=== PATIENT | male | born 1945 | race Caucasian/White ===

== ENCOUNTER 2017-06-17 08:59 | Inpatient (IN) | payer MEDICARE ==
[2017-06-17] MEDS ORDERED: SODIUM CHLORIDE 0.9% (PF) 10 ML VIAL ONE (09:00)
[2017-06-17] MEDS ORDERED: niCARdipine 25 MG/10 ML VIAL ONE (09:00)
[2017-06-17] MEDS ORDERED: ASPIRIN 81 MG PO STA (09:11)
[2017-06-17] MEDS ORDERED: HEPARIN SODIUM,PORCINE 5,000 UNIT/ML 1 ML VIAL IV STA (09:11)
[2017-06-17] MEDS ORDERED: ATORVASTATIN 80 MG TAB PO STA (09:11)
[2017-06-17] MEDS ORDERED: NITROGLYCERIN SL TABS 0.4 MG TAB SUBLINGUAL STA ×2 (09:15)
[2017-06-17] MEDS ORDERED: NALOXONE 0.4 MG/ML 1 ML VIAL IV PRN (09:18)
[2017-06-17] MEDS ORDERED: HYDROmorphone 2 MG/ML 1 ML SYRINGE IV ONE ×3 (09:31→10:12)
[2017-06-17] MEDS ORDERED: SODIUM CHLORIDE 0.9% 1,000 ML IV ONE (09:32)
--- NOTE | 2017-06-17 09:36 | XR ---
EXAMINATION TYPE: XR chest 1V portable DATE OF EXAM: 06/17/2017 CLINICAL HISTORY: ST elevated myocardial infarction. Chest pain into left arm. TECHNIQUE: Single AP portable frontal upright view of the chest is obtained. COMPARISON: None FINDINGS: There is horizontal left basilar opacity could reflect atelectasis and/or scarring. Right lung is clear. No large pleural effusion or pneumothorax is seen bilaterally. The cardiac silhouette size is within normal limits with atherosclerotic change in the aortic knob. The osseous structures are intact. IMPRESSION: Patchy left basilar atelectasis and/or scarring
[2017-06-17] MEDS ORDERED: diphenhydrAMINE 50 MG/ML 1 ML VIAL ONE (09:39)
[2017-06-17] MEDS ORDERED: methylPREDNISolone SOD SUCCI 125 MG/2 ML VIAL ONE (09:39)
[2017-06-17] MEDS ORDERED: NITROGLYCERIN SL TABS 0.4 MG TAB SUBLINGUAL ONE ×2 (09:41)
[2017-06-17] MEDS ORDERED: LIDOCAINE 2% INJ 20 MG/ML SQ ONE (09:41)
[2017-06-17] MEDS ORDERED: methylPREDNISolone SOD SUCCI 125 MG/2 ML VIAL IV ONE (09:43)
[2017-06-17] MEDS ORDERED: diphenhydrAMINE 50 MG/ML 1 ML VIAL IVP ONE (09:43)
[2017-06-17 09:44] LABS: Partial Thromboplastin Time 26.1 sec (22.0-30.0)
[2017-06-17] MEDS ORDERED: BIVALIRUDIN BOLUS 250 MG/50 ML IV ONE (09:45)
[2017-06-17] MEDS ORDERED: BIVALIRUDIN 250 MG in SODIUM CHLORIDE 0.9% 50 ML IV ONE (09:46)
[2017-06-17] MEDS ORDERED: LIDOCAINE 2% SYG (PF) 100 MG/5 ML IV ONE (09:49)
[2017-06-17] MEDS ORDERED: MEPERIDINE 50 MG/ML SYRINGE ONE (09:49)
[2017-06-17 09:50] LABS: INR 1.2 (<1.2); Prothrombin Time 11.2 sec (9.0-12.0)
[2017-06-17 09:50] LABS: Basophils # (A) 0.1 k/uL (0-0.2); Basophils % (A) 1 %; Eosinophils # (A) 0.1 k/uL (0-0.7); Eosinophils % (A) 2 %; HCT 48.1 % (39.0-53.0); HGB 15.9 gm/dL (13.0-17.5); Lymphocytes # (A) 1.9 k/uL (1.0-4.8); Lymphocytes % (A) 27 %; MCH 29.8 pg (25.0-35.0); MCV 90.3 fL (80.0-100.0); Mean Platelet Volume 7.7; Monocytes # (A) 0.4 k/uL (0-1.0); Monocytes % (A) 6 %; Neutrophils # (A) 4.3 k/uL (1.3-7.7); Neutrophils % (A) 62 %; Platelet Count 194 k/uL (150-450); RBC 5.32 m/uL (4.30-5.90); RDW 12.6 % (11.5-15.5); WBC 6.9 k/uL (3.8-10.6)
[2017-06-17] MEDS ORDERED: MEPERIDINE 50 MG/ML SYRINGE IVP ONE (09:50)
[2017-06-17 10:02] LABS: ALT 29 U/L (21-72); AST 20 U/L (17-59); Albumin 3.5 g/dL (3.5-5.0); Alkaline Phosphatase 72 U/L (38-126); Anion Gap 16 mmol/L; Blood Urea Nitrogen 15 mg/dL (9-20); Calcium 8.4 mg/dL (8.4-10.2); Carbon Dioxide 14 mmol/L (22-30); Chloride 113 mmol/L (98-107); Glucose 125 mg/dL (74-99); Magnesium 1.6 mg/dL (1.6-2.3); Potassium 3.4 mmol/L (3.5-5.1); Sodium 143 mmol/L (137-145); Total Bilirubin 0.8 mg/dL (0.2-1.3); Total Protein 6.3 g/dL (6.3-8.2)
--- NOTE | 2017-06-17 10:09 | ED ---
General Adult HPI - General Chief complaint: Chest Pain Stated complaint: CHEST PAIN Time Seen by Provider: 06/17/17 09:02 Source: patient, RN notes reviewed Mode of arrival: ambulatory Limitations: no limitations - History of Present Illness Initial comments: 71-year-old male presents for evaluation of a left anterior superior chest pain and severe left arm pain. Patient's symptoms began at approximately 8 AM. He was evaluated at approximately 9 AM. Denies nausea, has had some diaphoresis. He is in severe pain at the time my evaluation. 10 out of 10. No central substernal chest pain. No history of diabetes or hypertension. Patient is not currently on any medication. No known history of coronary artery disease. Patient is a nonsmoker. - Related Data Home Medications Medication Instructions Recorded Confirmed Multivitamin [Men's Multi-Vitamin] 1 each PO DAILY 02/06/14 02/06/14 Allergies Allergy/AdvReac Type Severity Reaction Status Date / Time povidone-iodine Allergy Rash/Hives Verified 02/06/14 15:47 [From Betadine] propoxyphene HCl Allergy Nausea & Verified 02/06/14 15:47 [From Darvon] Vomiting soap [From Betadine] Allergy Rash/Hives Verified 02/06/14 15:47 Review of Systems ROS Statement: Those systems with pertinent positive or pertinent negative responses have been documented in the HPI. ROS Other: All systems not noted in ROS Statement are negative. Past Medical History Past Medical History: No Reported History Additional Past Medical History / Comment(s): HAS BEEN TOLD THAT ON AN EKG, HEART "SKIPS BEATS" History of Any Multi-Drug Resistant Organisms: None Reported Past Surgical History: Orthopedic Surgery Additional Past Surgical History / Comment(s): ORIF RIGHT EYE ORBIT (SEVERAL SURGERIES) Past Anesthesia/Blood Transfusion Reactions: No Reported Reaction Past Psychological History: No Psychological Hx Reported Smoking Status: Never smoker - Past Family History Mother Family Medical History: Cancer Brother(s) Family Medical History: Cancer General Exam Limitations: no limitations General appearance: alert, in distress Head exam: Present: atraumatic, normocephalic Eye exam: Present: normal appearance, PERRL ENT exam: Present: normal exam Neck exam: Present: normal inspection. Absent: tenderness, meningismus Respiratory exam: Present: normal lung sounds bilaterally. Absent: respiratory distress, wheezes, chest wall tenderness Cardiovascular Exam: Present: regular rate, normal rhythm. Absent: rubs GI/Abdominal exam: Present: soft. Absent: distended, tenderness Extremities exam: Present: normal inspection, normal capillary refill, other ( Bilateral radial and bilateral pedal pulses are symmetric). Absent: pedal edema Neurological exam: Present: alert, oriented X3, CN II-XII intact. Absent: motor sensory deficit Psychiatric exam: Present: normal affect, normal mood Skin exam: Present: warm, intact, diaphoretic Course Vital Signs 06/17/17 06/17/17 06/17/17 09:04 09:11 09:13 Pulse Rate 88 89 Respiratory 22 16 18 Rate Blood Pressure 188/113 194/129 184/114 O2 Sat by Pulse 100 100 Oximetry EKG Findings - EKG Comments: EKG Findings:: EKG shows sinus rhythm with PVC, ventricular rate 89, IN interval 162, castration 82, QTC 4:30, ST segment elevation in leads V1 and V2 V3 and V4, there is reciprocal depression in lead 2. This is consistent with ST segment elevation [place] Medical Decision Making - Medical Decision Making 71-year-old male presenting with sudden onset left-sided chest pain and left arm pain. EKG reveals STEMI. labor and employment paralegal is activated. Patient is evaluated by cardiology in the emergency department and will be taken urgently to the Scrub Nurse. X-ray and laboratory studies are pending. Patient is given aspirin, Lipitor, heparin, and nitroglycerin in the emergency department. - Lab Data Result diagrams: 06/17/17 09:40 Disposition Clinical Impression: ST elevation myocardial infarction (STEMI) Disposition: ADMITTED IP TO THIS [facility] Condition: Serious Decision to Admit Reason: Admit from EC Decision Date: 06/17/17 Decision Time: 09:07
[2017-06-17] MEDS ORDERED: MAGNESIUM SULFATE-D5W PMX 1 GM in DEXTROSE/WATER 1 100ML.BAG IVPB ONE (10:11)
[2017-06-17] MEDS: POTASSIUM CHLORIDE 10 MEQ in SODIUM CHLORIDE 0.9% 100 ML IVPB SCH ×2 (10:22→11:10)
[2017-06-17] MEDS ORDERED: NITROGLYCERIN 1000MCG/10ML SYRINGE INTRACORON ONE ×2 (10:28→10:42)
[2017-06-17] MEDS ORDERED: METOPROLOL TARTRATE 5 MG/5 ML VIAL IVP ONE ×2 (10:32→10:35)
[2017-06-17] MEDS ORDERED: TICAGRELOR 90 MG TAB ONE (10:49)
[2017-06-17] MEDS ORDERED: TICAGRELOR 90 MG TAB PO ONE (10:50)
[2017-06-17 10:58] LABS: Creatine Kinase MB 2.3 ng/mL (0.0-2.4)
[2017-06-17 11:00] LABS: Troponin I 0.316 ng/mL (0.000-0.034)
[2017-06-17] MEDS ORDERED: IODIXANOL 320 MG/ML 100 ML INTRAARTER ONE (11:00)
[2017-06-17] MEDS ORDERED: IOHEXOL 350 MG/ML (PER ML) 100ML BTL INJ ONE (11:01)
[2017-06-17] MEDS ORDERED: LIDOCAINE URO-JET JELLY 2% 5 ML KIT ONE (11:08)
[2017-06-17] MEDS ORDERED: ATROPINE SULFATE 0.1 MG/ML 10ML SYRINGE IV PRN (11:12)
[2017-06-17] MEDS ORDERED: NITROGLYCERIN SL TABS 0.4 MG TAB SUBLINGUAL PRN (11:12)
[2017-06-17] MEDS ORDERED: ZOLPIDEM 5 MG TAB PO PRN (11:12)
[2017-06-17] MEDS ORDERED: MAG HYDROX/AL HYDROX/SIMETH 30 ML CUP PO PRN (11:12)
[2017-06-17] MEDS ORDERED: RX INFO: IV CONTRAST WAS GIVEN 1 EACH MISC MISCELLANE PRN (11:12)
[2017-06-17 11:52] LABS: Glucose,Whole Blood 118 mg/dL (75-99)
--- NOTE | 2017-06-17 11:52 | CONS ---
CONSULTATION This is a 71-year-old gentleman with a history of hyperlipidemia, recently started on a lipid-lowering agent by his PCP, was doing well until about 8:15 this morning when he developed severe chest pain radiating to the left upper extremity with diaphoresis. He lives in [place]. His drove him to the emergency room, was found to be in a ST elevation DE with anterior ST elevation. Patient was hemodynamically stable. In fact, slightly hypertensive with severe pain. I saw him in the emergency room. I advised prompt cardiac catheterization and intervention. He received aspirin 325 mg, heparin 4000 units and also Lipitor 80 mg daily, and he was transferred to the cardiac chemical laboratory assistant. At the time of my evaluation, patient was having severe pain, was hemodynamically stable. PAST MEDICAL HISTORY: Remarkable for degenerative joint disease and also recent hyperlipidemia for which he was placed on a lipid-lowering agent, details unavailable. ALLERGIES: He is allergic to IODINE and DARVON. REVIEW OF SYSTEMS: Unremarkable other than above-mentioned facts. PHYSICAL EXAMINATION: Blood pressure was 160/80, pulse rate was about 86 per minute. HEENT unremarkable. Fundus was not examined by me. Neck is supple. No JVD. I do not hear a carotid bruit. There is no thyromegaly. Heart exam reveals S1, S2 heard normally. Heart sounds were heard distantly. There was no rub murmur or gallop. Lungs are clear. Abdomen is soft, nontender. Lower extremities reveal palpable pulses. No edema. Central nervous system was normal. EKG revealed sinus mechanism, anterior ST elevation suggestive of a acute anterior ST- elevation DE. IMPRESSION: 1. Acute anterior ST-elevation myocardial infarction. 2. Hyperlipidemia. 3. Degenerative joint disease. RECOMMENDATIONS: I recommended prompt cardiac catheterization and PCI as indicated. Risks, benefits, options and rationale were explained to the patient and . Patient has IODINE allergy. He will be treated with steroids and Benadryl. The patient was taken to the cardiac chemical laboratory assistant after discussion regarding the risks, benefits and options. Both the patient and were in agreement. MMODL / IJN: [id number] /
--- NOTE | 2017-06-17 12:16 | CC ---
CARDIAC CATHETERIZATION REPORT DATE OF SERVICE: 06/17/2017 PROCEDURE: 1. Left heart catheterization and coronary angiography. 2. PTCA and stenting of totally occluded mid LAD performed in the setting of an acute ST-elevation ID with reperfusion accomplished in 57 minutes. 3. PTCA and stenting of the major first diagonal branch. 4. PTCA of a second diagonal branch. MODERATE CONSCIOUS SEDATION TIME: The patient was sedated with a combination of Versed, Benadryl and also Dilaudid. He was monitored closely for 69 minutes. Oxygen saturation was also monitored closely. CLINICAL INFORMATION: Mr. Ethan Joel is a 71-year-old gentleman with history of hyperlipidemia who presented to the emergency room with ST elevation ID. He was promptly taken to the cardiac slab installer. Risks, benefits, options and rationale were explained to the patient and . PROCEDURE NOTE: Under local anesthesia and strict aseptic precautions, a 6-Serbian introducer was placed in the right femoral artery. I started off with a standard left Darling guide catheter and performed intervention of the LAD and diagonal and then performed selective coronary angiography of the right coronary artery and checked LV pressures via a pigtail catheter without LV-gram. Following this, I used a Perclose device to secure hemostasis, but because of continued oozing a FemoStop was applied and he was sent to the ICU in a stable condition. The patient received Angiomax bolus and infusion as per protocol. He received 180 mg of Brilinta and was sent to ICU in a stable condition. Results were discussed with the patient and several family members FINDINGS: LEFT MAIN CORONARY ARTERY: Short patent vessel that immediately bifurcates into LAD and circumflex. LEFT ANTERIOR DESCENDING CORONARY ARTERY: This vessel is totally occluded in the midportion after the origin of 2 diagonal branches. The first diagonal comes off very proximally has a 95% stenosis with thrombus. The second diagonal has multiple areas of narrowing, is smaller in caliber, has haziness and thrombus. The LAD is occluded just after the second diagonal branch and there is not even a stump visible. LEFT POSTERIOR CIRCUMFLEX CORONARY ARTERY: Nondominant vessel gives off a single obtuse marginal then a secondary branch that is diffusely disease and then runs in the AV groove. There is diffuse disease in the secondary branch of the first obtuse marginal branch of nondominant circumflex. RIGHT CORONARY ARTERY: This is technically a dominant vessel. In the proximal one- third, there is narrowing of about 40% to 50%. The caliber then improves. Distally it bifurcates into PDA and PLV, both of which supply a fair amount of myocardium. There is diffuse disease noted in the distal branches and the PLV branch also has diffuse disease distally. PDA is larger. LEFT VENTRICULOGRAM: This was not performed. The left ventricular end-diastolic pressure was 26 mmHg without any gradient across the aortic valve. PCI DETAILS: I used a standard left Darling type guide catheter to cannulate left coronary artery. A BMW wire was used to cross the lesion in the second diagonal branch and wire was kept distally. I then advanced another BMW wire and was able to pass through the total occlusion. The LAD wire was kept distally. I used a 2.5 caliber 12 mm Trek balloon to dilate the LAD. There was improvement in angiographic appearance and flow. Patient immediately had relief of chest pain. I then deployed an 18 mm long 3.0 caliber Xience stent in the mid LAD total occlusion with excellent result. I then addressed the second obtuse marginal with a 2.25 caliber 12 mm balloon. This was a small caliber vessel. Multiple inflations were given at the origin as well as in the proximal portion of the second diagonal branch. I then took out the wire from the second diagonal and then wired the first diagonal, which was a larger vessel. Then, the proximal LAD before the second diagonal and after the first diagonal was also highly diseased and this was addressed with a 15 mm long 3.0 caliber Xience stent at 12 atmospheres. Excellent angiographic result in the LAD was achieved, but there was a lot of thrombus. The second diagonal was addressed with a 2.5 caliber 12 mm Trek balloon for predilatation and 16 mm long 2.5 caliber Promus stent was deployed in the second diagonal. Excellent angiographic result was achieved of the second diagonal also. There was a JOSE FRANCISCO-3 flow noted. Patient received intracoronary nitroglycerin and nicardipine. The mid and distal LAD was of a good distribution. It curved over the apex to supply the inferoapical portion of left ventricle as well. The distal aspect of the LAD had smooth narrowing of up to 30% to 40% noted throughout. The LAD was a large distribution vessel. Excellent angiographic result was achieved. Patient has 2 Xience stents of 15 mm of length proximal and 18 mm distal before and after the second diagonal branch. The first diagonal was stented with a 16 mm long 2.5 caliber Promus stent. All of these were drug-eluting stents. Excellent angiographic result without complication was achieved. Patient was pain free with a JOSE FRANCISCO-3 flow in LAD. The second diagonal had somewhat of a sluggish flow, but the first diagonal had an excellent flow. Results were to the patient and family and he was sent to the ICU in a stable condition. MMODL / IJN: [id number] /
[2017-06-17] MEDS: LOSARTAN 50 MG TAB PO SCH (12:23)
[2017-06-17] MEDS: SODIUM CHLORIDE 0.9% 1,000 ML IV SCH (12:23)
[2017-06-17] MEDS ORDERED: MORPHINE SULFATE 4 MG/ML SYRINGE IVP PRN (13:09)
[2017-06-17] MEDS ORDERED: HYDROcodone/APAP 5-325MG 1 EACH TAB PO PRN (13:09)
[2017-06-17 14:22] VITALS: BMI 26.6
[2017-06-17] MEDS ORDERED: amLODIPine 5 MG TAB PO STA (15:39)
[2017-06-17 15:52] LABS: Magnesium 2.1 mg/dL (1.6-2.3); Potassium 4.6 mmol/L (3.5-5.1)
[2017-06-17] MEDS: METOPROLOL TARTRATE 12.5 MG TAB PO SCH (20:09)
[2017-06-17] MEDS: ATORVASTATIN 80 MG TAB PO SCH (20:09)
[2017-06-18 05:04] LABS: Basophils % (A) 0 %; Eosinophils # (A) 0.1 k/uL (0-0.7); Eosinophils % (A) 0 %; HCT 49.8 % (39.0-53.0); HGB 15.7 gm/dL (13.0-17.5); Lymphocytes # (A) 1.1 k/uL (1.0-4.8); Lymphocytes % (A) 7 %; MCH 29.3 pg (25.0-35.0); MCHC 31.5 g/dL (31.0-37.0); MCV 93.1 fL (80.0-100.0); Mean Platelet Volume 7.6; Monocytes # (A) 0.9 k/uL (0-1.0); Monocytes % (A) 5 %; Neutrophils # (A) 14.7 k/uL (1.3-7.7); Neutrophils % (A) 87 %; Platelet Count 206 k/uL (150-450); RBC 5.35 m/uL (4.30-5.90); RDW 12.7 % (11.5-15.5)
[2017-06-18 05:16] LABS: Anion Gap 9 mmol/L; Blood Urea Nitrogen 20 mg/dL (9-20); Calcium 9.2 mg/dL (8.4-10.2); Carbon Dioxide 24 mmol/L (22-30); Chloride 105 mmol/L (98-107); Glucose 136 mg/dL (74-99); Potassium 4.4 mmol/L (3.5-5.1); Sodium 138 mmol/L (137-145)
[2017-06-18] MEDS: LOSARTAN 50 MG TAB PO SCH (08:22)
[2017-06-18] MEDS: METOPROLOL TARTRATE 12.5 MG TAB PO SCH ×2 (08:22→19:57)
[2017-06-18] MEDS: ASPIRIN 81 MG PO SCH (08:22)
[2017-06-18] MEDS: TICAGRELOR 90 MG TAB PO SCH ×2 (08:22→19:57)
[2017-06-18] MEDS: SODIUM CHLORIDE 0.9% 1,000 ML IV SCH (08:22)
--- NOTE | 2017-06-18 12:44 | PN ---
PROGRESS NOTE Mr. Joel presented with acute anterior ST-elevation [place] yesterday. I performed a cardiac cath and PCI of a complex LAD lesion and also placed a drug-eluting stent in the first major diagonal and dilated the second major diagonal and mid LAD had also 2 stents. Excellent angiographic result was achieved. He presents here. I am seeing him following the procedure. He is asymptomatic. His right groin has ecchymosis. He did have some bleeding after the Perclose was not successful. He had a manual compression. There is an area of ecchymosis with a good pulse. No bruit in the right groin. He does not have any chest discomfort. EKG reveals evidence of anterior Q-waves, a sinus mechanism. Blood pressure is 120/70, pulse rate is 74 per minute, regular. HEENT: Unremarkable. Fundus was not examined by me. Neck is supple. No JVD. I do not hear a carotid bruit. Heart exam reveals S1, S2 heard normally without a rub, murmur or gallop. Lungs are clear. Abdomen is soft, nontender. Right groin has ecchymosis. No bruit. Pulses palpable, distal pulses are good. Central nervous system is normal. EKG revealed a sinus mechanism with evidence of anterior Q-waves. IMPRESSION: 1. Status post acute anterior ST-elevation myocardial infarction. 2. Hyperlipidemia. RECOMMENDATIONS: I am recommending that we increase activity and hopefully transfer him to telemetry today. Continue hydration till 6 pm and then reduce the fluids to KVO. I will also review an echocardiogram that was performed today. Will increase activity, risk factor modification and transfer him to telemetry today. MMODL / IJN: [id number] /
--- NOTE | 2017-06-18 13:39 | ECHOF ---
Referral Reason:Ant STEMI ,S/P LAD PCI MEASUREMENTS -------- HEIGHT: 177.8 cm WEIGHT: 81.6 kg BP: 113/79 IVSd: 0.9 cm (0.6 - 1.1) LVIDd: 5.1 cm (3.9 - 5.3) LVPWd: 0.9 cm (0.6 - 1.1) IVSs: 0.7 cm LVIDs: 4.2 cm LVPWs: 0.6 cm LAESV Index (A-L): 10.05 ml/m Ao Diam: 3.3 cm (2.0 - 3.7) AV Cusp: 1.8 cm (1.5 - 2.6) LA Diam: 3.1 cm (2.7 - 3.8) MV EXCURSION: 19.089 mm (> 18.000) MV EF SLOPE: 214 mm/s (70 - 150) EPSS: 1.9 cm MV E Giancarlo: 0.67 m/s MV DecT: 203 ms MV A Giancarlo: 0.67 m/s MV E/A Ratio: 1.00 RAP: 5.00 mmHg RVSP: 30.03 mmHg FINDINGS -------- Sinus rhythm. This was a technically good study. The left ventricular size is normal. Left ventricular wall thickness is normal. Overall left vent ricular systolic function is severely impaired with, an EF between 20 - 25 %. Mid anterior LV wall motion is hypokinetic. Mid lateral LV wall motion is hypokinetic. Mid inferior LV wall motion i s hypokinetic. Mid inferoseptal LV wall motion is hypokinetic. Mid anteroseptal LV wall motion is hypokinetic. Apical anterior LV wall motion is hypokinetic. Apical lateral LV wall motion is hypokinetic. Apical inferior LV wall motion is hypokinetic. Apical septum LV wall motion is hy pokinetic. Anterseptal Hypokinesis The right ventricle is normal in size and function. The left atrium is normal in size. The right atrium is normal in size. The aortic valve is trileaflet, and appears structurally normal. No aortic stenosis or regurgitation. Moderate mitral regurgitation is present. There is moderate mitral valve prolapse , predominately a n anteriorly directed jet. Mild tricuspid regurgitation present. The right ventricular systolic pressure, as measured by Doppl er, is 30.03mmHg. Pulmonic valve appears structurally normal. The aortic root size is normal. There is a trivial pericardial effusion present. CONCLUSIONS -------- 1. Sinus rhythm. 2. This was a technically good study. 3. The left ventricular size is normal. 4. Left ventricular wall thickness is normal. 5. Overall left ventricular systolic function is severely impaired with, an EF between 20 - 25 %. 6. Mid anterior LV wall motion is hypokinetic. 7. Mid lateral LV wall motion is hypokinetic. 8. Mid inferior LV wall motion is hypokinetic. 9. Mid inferoseptal LV wall motion is hypokinetic. 10. Mid anteroseptal LV wall motion is hypokinetic. 11. Apical anterior LV wall motion is hypokinetic. 12. Apical lateral LV wall motion is hypokinetic. 13. Apical inferior LV wall motion is hypokinetic. 14. Apical septum LV wall motion is hypokinetic. 15. Anterseptal Hypokinesis 16. The right ventricle is normal in size and function. 17. The left atrium is normal in size. 18. The right atrium is normal in size. 19. The aortic valve is trileaflet, and appears structurally normal. No aortic stenosis or regurgitat ion. 20. There is moderate mitral valve prolapse. 21. , predominately an anteriorly directed jet. 22. Mild tricuspid regurgitation present. 23. The right ventricular systolic pressure, as measured by Doppler, is 30.03mmHg. 24. Pulmonic valve appears structurally normal. 25. The aortic root size is normal. 26. There is a trivial pericardial effusion present. ROPE TOW OPERATOR: Ginette Aden RDCS
[2017-06-18] MEDS ORDERED: MORPHINE ORAL SOLN 10 MG/5 ML CUP PO PRN (13:55)
[2017-06-18] MEDS: ATORVASTATIN 80 MG TAB PO SCH (19:57)
[2017-06-19 06:34] LABS: Basophils % (A) 0 %; Eosinophils # (A) 0.1 k/uL (0-0.7); Eosinophils % (A) 1 %; HCT 47.8 % (39.0-53.0); HGB 15.6 gm/dL (13.0-17.5); Lymphocytes # (A) 1.4 k/uL (1.0-4.8); Lymphocytes % (A) 13 %; MCH 29.7 pg (25.0-35.0); MCHC 32.6 g/dL (31.0-37.0); MCV 91.2 fL (80.0-100.0); Mean Platelet Volume 7.7; Monocytes # (A) 0.7 k/uL (0-1.0); Monocytes % (A) 7 %; Neutrophils # (A) 8.3 k/uL (1.3-7.7); Neutrophils % (A) 78 %; Platelet Count 174 k/uL (150-450); RBC 5.24 m/uL (4.30-5.90); RDW 12.8 % (11.5-15.5); WBC 10.6 k/uL (3.8-10.6)
[2017-06-19 06:40] LABS: Potassium 4.2 mmol/L (3.5-5.1)
[2017-06-19] MEDS: METOPROLOL TARTRATE 12.5 MG TAB PO SCH (06:44)
[2017-06-19] MEDS: TICAGRELOR 90 MG TAB PO SCH ×2 (09:02→20:56)
[2017-06-19] MEDS: LOSARTAN 50 MG TAB PO SCH (09:02)
[2017-06-19] MEDS: ASPIRIN 81 MG PO SCH (09:02)
[2017-06-19] MEDS ORDERED: METOPROLOL TARTRATE 12.5 MG TAB PO STA (09:09)
[2017-06-19] MEDS ORDERED: DEXTROSE 5% IN WATER 100 ML with AMIODARONE 150 MG IV ONE (09:09)
[2017-06-19] MEDS: AMIODARONE 450 MG in DEXTROSE 5% IN WATER 250 ML IV SCH ×6 (11:27→23:11)
--- NOTE | 2017-06-19 16:56 | PN ---
PROGRESS NOTE Mr. Joel had an echocardiogram yesterday which revealed ejection fraction of only 25% with extensive wall motion abnormalities. Unfortunately he had runs of wide QRS tachycardia. I am recommending that we place him on IV amiodarone, increase the Lopressor, to repeat an echocardiogram, and based on clinical course, I will make further recommendations and I will seek an opinion from Dr. Beyer. I discussed the findings on the echo, ventricular ectopy and the concern that we have and the possibility he may have a LifeVest prior to discharge with the patient and his family. Blood pressure today is 110/70, pulse rate 70 per minute. JVD is not evident. S1, S2 heard normally. Lungs reveal decent air entry. Abdomen is soft. Lower extremities reveal diminished pulses. Central nervous system is normal grossly. Plan is to continue current medications and add amiodarone and see how he does. His magnesium and potassium are in the normal range. MMODL / IJN: [id number] /
[2017-06-19] MEDS: ATORVASTATIN 80 MG TAB PO SCH (20:56)
[2017-06-19] MEDS: METOPROLOL TARTRATE 25 MG TAB PO SCH (20:56)
[2017-06-20] MEDS: TICAGRELOR 90 MG TAB PO SCH ×2 (08:27→20:34)
[2017-06-20] MEDS: METOPROLOL TARTRATE 25 MG TAB PO SCH ×2 (08:27→20:34)
[2017-06-20] MEDS: ASPIRIN 81 MG PO SCH (08:28)
[2017-06-20] MEDS: LOSARTAN 50 MG TAB PO SCH (08:28)
--- NOTE | 2017-06-20 08:50 | ECHOF ---
Referral Reason:decreased heart function, 2nd echo requested by MEASUREMENTS -------- HEIGHT: 175.3 cm WEIGHT: 81.6 kg BP: 99/72 RVIDd: 2.8 cm (< 3.3) IVSd: 1.0 cm (0.6 - 1.1) LVIDd: 4.5 cm (3.9 - 5.3) LVPWd: 0.9 cm (0.6 - 1.1) IVSs: 1.1 cm LVIDs: 3.6 cm LVPWs: 1.1 cm LAESV Index (A-L): 20.11 ml/m Ao Diam: 3.0 cm (2.0 - 3.7) AV Cusp: 1.6 cm (1.5 - 2.6) LA Diam: 3.5 cm (2.7 - 3.8) MV E Giancarlo: 0.46 m/s MV DecT: 362 ms MV A Giancarlo: 0.83 m/s MV E/A Ratio: 0.56 RAP: 5.00 mmHg RVSP: 28.25 mmHg MV EF SLOPE: 73.75 mm/s (70 - 150) MV EXCURSION: 1.12 cm (> 18.000) FINDINGS -------- Sinus rhythm. Limited Study for assessment of left ventricular function. The left ventricular size is normal. Left ventricular wall thickness is normal. Overall left vent ricular systolic function is severely impaired with, an EF between 20 - 25 %. Mid anterior LV wall motion is hypokinetic. Mid lateral LV wall motion is hypokinetic. Mid inferior LV wall motion i s hypokinetic. Apical anterior LV wall motion is hypokinetic. Apical lateral LV wall motion is hypokinetic. Apical inferior LV wall motion is hypokinetic. Apical septum LV wall motion is hyp okinetic. Anterseptal Hypokinesis [place] Hypokinesis. The right ventricle is normal in size. Normal LA size by volume 22+/-6 ml/m2. The right atrium is normal in size. There is moderate mitral valve prolapse. There is a small, generalized pericardial effusion present. CONCLUSIONS -------- 1. Sinus rhythm. 2. Limited Study for assessment of left ventricular function. 3. The left ventricular size is normal. 4. Left ventricular wall thickness is normal. 5. Overall left ventricular systolic function is severely impaired with, an EF between 20 - 25 %. 6. Mid anterior LV wall motion is hypokinetic. 7. Mid lateral LV wall motion is hypokinetic. 8. Mid inferior LV wall motion is hypokinetic. 9. Apical anterior LV wall motion is hypokinetic. 10. Apical lateral LV wall motion is hypokinetic. 11. Apical inferior LV wall motion is hypokinetic. 12. Apical septum LV wall motion is hypokinetic. 13. Anterseptal Hypokinesis 14. [place] Hypokinesis. 15. Normal LA size by volume 22+/-6 ml/m2. 16. There is moderate mitral valve prolapse. 17. There is a small, generalized pericardial effusion present. INGOT CAR OPERATOR: Konstantin Tejada RDCS
[2017-06-20] MEDS: AMIODARONE 450 MG in DEXTROSE 5% IN WATER 250 ML IV SCH ×2 (12:46)
[2017-06-20] MEDS: AMIODARONE 200 MG TAB PO SCH ×2 (12:46→20:34)
--- NOTE | 2017-06-20 15:18 | PN ---
PROGRESS NOTE This is a gentleman who suffered from an anterior [place], has developed ventricular ectopy until day before yesterday. He is resting comfortably. His functional capacity is good. However, his echo revealed ejection fraction of 20% to 25% with extensive wall motion abnormality. I am recommending that we will do a low-level stress test on Thursday and we will continue the amiodarone and beta ayush for now. Discontinue the IV, put a Hep-Lock. Increase activity and hopefully discharge him with a Life Vest after a low level stress test on Thursday. Vital signs are stable there is no JVD. S1, S2 heard normally. Lungs are quite clear. Abdomen is soft. Lower extremities reveal palpable pulses. No edema. Central nervous system is normal. Rest of physical examination is unchanged. MMODL / IJN: [id number] /
[2017-06-20] MEDS: ATORVASTATIN 80 MG TAB PO SCH (20:34)
--- NOTE | 2017-06-20 22:07 | PN ---
PROGRESS NOTE DATE OF SERVICE: 06/20/2017 I am covering for Dr. Ethan Hensley. This 71-year-old gentleman with acute ST-segment elevation myocardial infarction , had cardiac catheterization and as well as PTCA, stenting of the totally occluded mid LAD and as well as PTCA and stenting of the major 1st diagonal branch, PTCA of 2nd diagonal branch also by Dr. Stewart Mcgraw. 2D echo Doppler showed evidence of chronic systolic dysfunction ejection fraction 20 to 25% with multiple wall hypokinesis indicating possibly ischemic cardiomyopathy. Cardiology is following the patient closely and the patient is on multiple medications. Patient also had right complex QRS tachycardia. The patient is on amiodarone IV, transitioned to p.o. LifeVest is also being planned at this time. PAST MEDICAL: Past medical reviewed. REVIEW OF SYSTEMS: Cardio system: As mentioned earlier. Respiratory: As mentioned earlier. GI no nausea or vomiting. : As mentioned earlier. CURRENT MEDICATIONS ARE: 1. [place] 5 mg q.4h p.r.n. 2. Maalox 30 mL q.4h p.r.n. 3. Cordarone 200 mg p.o. b.i.d. 4. Aspirin 81 mg p.o. daily. 5. Lipitor 80 mg p.o. q.h.s. 6. 0tropine 0.5 p.r.n. 7. Cozaar 50 mg q.h.s. 8. Lopressor 25 mg p.o. b.i.d. 9. Morphine 6 mg q.24 hours. 10.Narcan 0.2 q.2h p.r.n. 11.Nitrostat 0.4 mg. 13.Ambien 5 mg p.o. b.i.d. PHYSICAL EXAM: Patient is alert, oriented times three, pulse 70, blood pressure 103/65, respiratory rate 12, temperature is 97.8, pulse ox 97% room air. HEENT: Conjunctivae normal. Oral mucosa moist. Neck is no jugular venous distention. No carotid bruit. No lymph node enlargement. Cardiac system: S1, S2 muffled. No S3, no S4. RESPIRATORY: Breath sounds diminished in the bases. A few scattered rhonchi. No crackles. ABDOMEN: Soft, nontender. No mass palpable. Legs no edema and no swelling. NERVOUS SYSTEM: Higher functions as mentioned earlier. Moves all four limbs. Lymphatics: No lymph nodes palpable in the neck, axilla and groin. Skin no rashes. LABS: At this time shows WBC 10.6 and glucose 136. Troponins elevated up to 104. The chest x-ray done during admission patchy left basilar atelectasis and scarring. ASSESSMENT: 1. Acute ST-segment elevation myocardial infarction status post cardiac catheterization and stenting of the mid LAD and as well as major 1st and 2nd diagonal branches. 2. Ischemic cardiomyopathy with chronic congestive heart failure with chronic systolic dysfunction ejection fraction 25-30%. 3. Gastroesophageal reflux disease. 4. Hyperlipidemia. 5. History of degenerative joint disease. 6. History of bronchitis. 7. History of degenerative joint disease and arthritis. 8. History of hernia repair. RECOMMENDATIONS AND DISCUSSION: In this 71-year-old gentleman who presented with multiple complex medical issues , we will monitor the patient closely, continue the current medications and management and symptomatic treatment. Otherwise, I would recommend repeat labs. Lipid panel and I would also recommend baseline UA and continue the Amiodarone, continue with beta blockers. Monitor blood pressure closely. Monitor fluid and electrolyte balance closely. Patient is on Brilinta and aspirin as well. Closely monitor. Follow with Cardiology. Possible LifeVest/AICD. The patient is on maximum dose of Lipitor as well. The prognosis is guarded because of multiple complex medical issues. Discussed with the patient and closely follow with Cardiology. Further recommendations to follow. BARRON / DOMI: [id number] / MTDD
[2017-06-20 22:09] LABS: Appearance,Urine Clear (Clear); Bilirubin,Urine Negative (Negative); Blood,Urine Negative (Negative); Color,Urine Yellow; Glucose,Urine (UA) Negative (Negative); Ketones,Urine Negative (Negative); Leukocyte Esterase,Urine Negative (Negative); Nitrite,Urine Negative (Negative); Protein,Urine Negative (Negative); Specific Gravity,Urine 1.013 (1.001-1.035); Urobilinogen,Urine <2.0 mg/dL (<2.0)
[2017-06-21 06:41] LABS: Basophils # (A) 0.1 k/uL (0-0.2); Basophils % (A) 1 %; Eosinophils # (A) 0.2 k/uL (0-0.7); Eosinophils % (A) 2 %; HCT 46.3 % (39.0-53.0); HGB 14.9 gm/dL (13.0-17.5); Lymphocytes # (A) 1.5 k/uL (1.0-4.8); Lymphocytes % (A) 14 %; MCH 29.1 pg (25.0-35.0); MCHC 32.1 g/dL (31.0-37.0); MCV 90.8 fL (80.0-100.0); Monocytes # (A) 0.6 k/uL (0-1.0); Monocytes % (A) 6 %; Neutrophils # (A) 7.9 k/uL (1.3-7.7); Neutrophils % (A) 75 %; Platelet Count 188 k/uL (150-450); RDW 12.5 % (11.5-15.5); WBC 10.5 k/uL (3.8-10.6)
[2017-06-21 06:56] LABS: Anion Gap 10 mmol/L; Blood Urea Nitrogen 17 mg/dL (9-20); Calcium 9.1 mg/dL (8.4-10.2); Carbon Dioxide 24 mmol/L (22-30); Chloride 106 mmol/L (98-107); Cholesterol 105 mg/dL (<200); Glucose 88 mg/dL (74-99); HDL Cholesterol 41 mg/dL (40-60); LDL Cholesterol,Calculated 45 mg/dL (0-99); Magnesium 1.8 mg/dL (1.6-2.3); Potassium 4.5 mmol/L (3.5-5.1); Sodium 140 mmol/L (137-145); Triglycerides 96 mg/dL (<150)
[2017-06-21] MEDS: METOPROLOL TARTRATE 25 MG TAB PO SCH ×2 (09:05→21:35)
[2017-06-21] MEDS: AMIODARONE 200 MG TAB PO SCH ×2 (09:05→21:35)
[2017-06-21] MEDS: ASPIRIN 81 MG PO SCH (09:05)
[2017-06-21] MEDS: TICAGRELOR 90 MG TAB PO SCH ×2 (09:05→21:35)
[2017-06-21] MEDS: LOSARTAN 50 MG TAB PO SCH (10:21)
[2017-06-21] MEDS ORDERED: MAGNESIUM SULFATE-D5W PMX 1 GM in DEXTROSE/WATER 1 100ML.BAG IVPB ONE (12:00)
--- NOTE | 2017-06-21 15:18 | PN ---
PROGRESS NOTE Mr. Joel is in sinus rhythm. Has had no ventricular ectopy at all. His magnesium level is low. We will give him 1 g of magnesium and also start him on Lasix 10 mg b.i.d. p.o. Lungs revealed decent air entry with very fine rales on right base. S1, S2 heard normally. Right groin is clean and dry. Rest of physical examination is unchanged. I will give him Lasix 10 mg b.i.d. a low-level stress test tomorrow and he will be discharged with a Life Vest. MMODL / IJN: [id number] / MTDD
[2017-06-21] MEDS: FUROSEMIDE 10 MG TAB PO SCH (16:20)
--- NOTE | 2017-06-21 19:30 | PN ---
PROGRESS NOTE DATE OF SERVICE: 06/21/2017 I am covering for Dr. Ethan Hensley. HISTORY OF PRESENT ILLNESS: This 71-year-old gentleman who was admitted with acute elevation myocardial infarction is being also closely monitored at this time. The patient is slated for Life Vest placement as well as valvular stress test tomorrow. No chest pain. No palpitations. No fever. EXAM: Alert and oriented x3. Pulse 74, blood pressure 103/62, respiration 14, temperature 97.2, pulse ox 98% on room air. HEENT: Conjunctivae normal. NECK: No jugular venous distention. CARDIOVASCULAR: S1, S2. RESPIRATORY: Breath sounds diminished in the bases. No rhonchi, no crackles. ABDOMEN: Soft, nontender. LEGS: No edema. NERVOUS SYSTEM: No focal deficits. LAB: CBC and BMP within normal limits. Troponin is noted. ASSESSMENT: 1. Acute ST-segment elevation myocardial infarction status post cardiac catheterization, stenting of the mid LAD as well as [place] first and second diagonal branches. 2. Ischemic cardiomyopathy with chronic congestive heart failure with chronic systolic dysfunction, ejection fraction 25-30%. 3. Gastroesophageal reflux disease. 4. Hyperlipidemia. 5. History of degenerative joint disease. 6. History of bronchitis. 7. History of hernia repair. RECOMMENDATIONS AND DISCUSSION: I recommend to continue current management and symptomatic treatment. Closely follow with Cardiology. Antiplatelet and beta blockers and Dr. Hensley will follow. Further recommendations to follow. MMLUCYL / LUISN: [id number] /
[2017-06-21] MEDS: ATORVASTATIN 80 MG TAB PO SCH (21:35)
[2017-06-22 08:55] VITALS: PULSE 68
[2017-06-22] MEDS ORDERED: POTASSIUM CHLORIDE ER 10 MEQ TAB.ER.PRT PO SCH (09:00)
[2017-06-22] MEDS: METOPROLOL TARTRATE 25 MG TAB PO SCH (09:12)
[2017-06-22] MEDS: ASPIRIN 81 MG PO SCH (09:12)
[2017-06-22] MEDS: AMIODARONE 200 MG TAB PO SCH (09:12)
[2017-06-22] MEDS: TICAGRELOR 90 MG TAB PO SCH (09:12)
[2017-06-22] MEDS: FUROSEMIDE 10 MG TAB PO SCH ×2 (09:12→15:13)
[2017-06-22] MEDS: LOSARTAN 50 MG TAB PO SCH (09:19)
--- NOTE | 2017-06-22 12:19 | EST ---
EXERCISE STRESS DATE OF SERVICE: 06/22/2017 AGE: 71 SEX: Male HT: 59" WT: 180 PROTOCOL: Marky, modified. STAGE: I DURATION OF EXERCISE: 3 minutes, 5 seconds. HEART RATE REST: 63 BLOOD PRESSURE REST: 131/60 MAXIMUM HEART RATE ACHIEVED: 74 MAXIMUM BLOOD PRESSURE: 136/60 85% MPHR: 126 100% MPHR: 148 METS: @@ INDICATIONS: Chest pain. CLINICAL INFORMATION: Baseline rhythm is sinus mechanism, rate 63, borderline right axis deviation, evidence of anterior wall myocardial infarction. Baseline blood pressure 131/60 mmHg. Patient exercised on Marky protocol, on modified Marky protocol, for 3 minutes 5 seconds achieving peak rate of 74 beats per minute. Peak blood pressure 136/60 mmHg. Test was terminated secondary to fatigue. There were no chest pains. Electrocardiograph monitoring revealed no evidence of diagnostic ischemic ST deviation. No arrhythmia was noted. CONCLUSION: 1. Poor exercise tolerance. 2. Nondiagnostic electrocardiograph stress testing secondary to the inability to achieve 85% maximum predicted heart rate. 3. There was no evidence of significant arrhythmia. MMODL / IJN: [id number] /
--- NOTE | 2017-06-22 15:25 | P.PN ---
Subjective Progress Note Date: 06/22/17 This is a 71-year-old gentleman with history of hyperlipidemia who presented to the emergency room with a non-ST elevation myocardial infarction. He was taken directly to the cardiac catheterization lab where he underwent PTCA and stenting of a totally occluded mid LAD, PTCA and stenting of the major first diagonal branch, and PTCA of a second diagonal branch. Echocardiogram with Doppler study revealed an ejection fraction of 20-25% with extensive wall motion abnormality. Low level stress test was performed today which patient tolerated well. also had nonsustained ventricular tachycardia. He was advised to be discharged home today with a LifeVest. Hemodynamically he is stable, denies any chest pain. Objective - Vital Signs Vital signs: Vital Signs Temp 97.8 F 06/22/17 11:23 Pulse 68 06/22/17 11:44 Resp 16 06/22/17 14:00 BP 109/64 06/22/17 11:23 Pulse Ox 94 L 06/22/17 14:00 Intake & Output 06/21/17 06/22/17 06/22/17 18:59 06:59 18:59 Intake Total 922 222 Balance 922 222 Weight 78 kg 77.564 kg Intake: Intake, IV Titration 100 Amount Magnesium Sulfate-D5w Pmx 100 1 gm In Dextrose/Water 1 100ml.bag @ 100 mls/hr IVPB ONCE ONE Rx#: [id number] Oral 822 222 Other: Voiding Method Toilet Toilet # Voids 2 2 - Exam PHYSICAL EXAMINATION: HEENT: Head is atraumatic, normocephalic. Pupils equal, round. Neck is supple. There is no elevated jugular venous pressure. HEART EXAMINATION: Heart S1, S2 normal. No murmur or gallop heard. CHEST EXAMINATION: Lungs are clear to auscultation and precussion. No chest wall tenderness is noted on palpation or with deep breathing. ABDOMEN: Soft, nontender. Bowel sounds are heard. No organomegaly noted. EXTREMITIES: 2+ peripheral pulses with no evidence of peripheral edema and no calf tenderness noted. NEUROLOGIC patient is awake, alert and oriented -3. . - Labs CBC & Chem 7: 06/21/17 05:43 06/21/17 05:43 Assessment and Plan Plan: Assessment and plan #[address] elevation myocardial infarction status post stenting of a totally occluded LAD, status post stenting of the first diet, and PTCA of the second diagonal. #2 hypertension #3 hyperlipidemia #4 nonsustained ventricular tachycardia #5 ischemic cardiomyopathy Plan From cardiology's perspective, patient may be able to be discharged home today with a LifeVest in place. Patient's blood pressure today earlier 80/60, we will decrease his dose of Cozaar to 25 mg daily, patient also underwent a low- level stress test today. Patient will be discharged home on amiodarone 200 mg twice a day, Ecotrin 81 mg daily, Lipitor 80 mg daily, Lasix 10 mg by mouth twice a day, losartan 25 mg daily, metoprolol 25 mg one tablet by mouth twice a day, ataxia and 10 mEq daily, Brilinta 90 mg one tablet by mouth twice a day and sublingual nitroglycerin as needed for chest pain. A follow-up appointment will be made in the office with Dr. Mcgraw post discharge DNP note has been reviewed, I agree with a documented findings and plan of care. Patient was seen and examined.
[2017-06-22 15:49] VITALS: BP 102/63; RESP 14; TEMP 98.2
--- NOTE | 2017-06-23 07:20 | DS ---
DISCHARGE SUMMARY DATE OF DISCHARGE: And patient seen 06/22/2017. DATE OF ADMISSION: 06/17/2017. DISCHARGE MEDICATIONS: 1. Amiodarone 200 mg twice a day. 2. Aspirin 81 once daily. 3. Lipitor 80 once at bedtime. 4. Cozaar 25 mg daily. 5. Lopressor 25 b.i.d. 6. Nitroglycerin sublingual p.r.n. 7. Brilinta 90 mg twice daily. 8. Claritin 1 daily. Patient is to follow up with Dr. Stewart Mcgraw in 1 week and follow up with me in 2 weeks. HOSPITAL COURSE: This is a pleasant 71-year-old white male who was admitted to the hospital with a non- ST-segment elevated myocardial infarction. He was taken to the [facility] and underwent stenting of a totally occluded LAD and diagonal branch. The patient was doing well but had a low ejection fraction of 20-25% with extensive wall-motion abnormality. He was discharged home with a life vest and follow up with Cardiology. FINAL DIAGNOSES: 1. Acute anterior segment elevated myocardial infarction. 2. Status post stenting of the LAD and two diagonal branches. 3. Ischemic cardiomyopathy with a 20-25% ejection fraction. 4. Hypertensive cardiovascular disease. 5. Hyperlipidemia. PLAN: As above. MMODL / IJN: [id number] /
[2017-06-23] MEDS ORDERED: LOSARTAN 25 MG TAB PO SCH (09:00)
== END 2017-06-22 19:00 | disposition home or self-care (01) | DRG 247 ==
LOC: EC 08:59 → 6ICU 09:12 → 6SEL 06-18 15:23
PROVIDERS: ADMIT Family Medicine; ATTEND Family Medicine
PROC: 027136Z Dilation of Coronary Artery, Two Arteries with Three Drug-eluting Intraluminal Devices, Percutaneous Approach (ICD-10-PCS; principal; 2017-06-17 09:22)
PROC: 4A023N7 Measurement of Cardiac Sampling and Pressure, Left Heart, Percutaneous Approach (ICD-10-PCS; 2017-06-17 09:22)
PROC: B2111ZZ Fluoroscopy of Multiple Coronary Arteries using Low Osmolar Contrast (ICD-10-PCS; 2017-06-17 09:22)
DX: I21.09 ST elevation (STEMI) myocardial infarction involving other coronary artery of anterior wall (principal); I47.2 Ventricular tachycardia; I25.82 Chronic total occlusion of coronary artery; I50.22 Chronic systolic (congestive) heart failure; I11.0 Hypertensive heart disease with heart failure; I25.10 Atherosclerotic heart disease of native coronary artery without angina pectoris; I25.5 Ischemic cardiomyopathy; I49.3 Ventricular premature depolarization; E78.5 Hyperlipidemia, unspecified; M19.91 Primary osteoarthritis, unspecified site; K21.9 Gastro-esophageal reflux disease without esophagitis; Z79.899 Other long term (current) drug therapy
CPT/HCPCS: 71045; 80048; 80053; 80061; 81003; 82550; 82553; 83735; 84132; 84484; 85025; 85610; 85730; 92921; 93005; 93017; 93306; 93308; 93458; 96374; 99285

== ENCOUNTER → 2018-06-24 | Outpatient (CLI) | payer MEDICARE ==
[2018-06-24 13:24] LABS: HCT 47.1 % (39.0-53.0); HGB 15.5 gm/dL (13.0-17.5); MCH 30.5 pg (25.0-35.0); MCHC 32.9 g/dL (31.0-37.0); MCV 92.8 fL (80.0-100.0); Mean Platelet Volume 7.2; Platelet Count 196 k/uL (150-450); RBC 5.08 m/uL (4.30-5.90); RDW 13.2 % (11.5-15.5); WBC 5.6 k/uL (3.8-10.6)
[2018-06-24 18:41] LABS: Anion Gap 5.1 mmol/L (4.00-12.00); Calcium 9.2 mg/dL (8.7-10.3); Carbon Dioxide 27.9 mmol/L (21.6-31.8); Potassium 4.5 mmol/L (3.5-5.5)
== END | disposition home or self-care (01) ==
LOC: LABWHC1 12:02
PROVIDERS: ATTEND Internal Medicine Interventional Cardiology
DX: I25.10 Atherosclerotic heart disease of native coronary artery without angina pectoris (principal); I50.9 Heart failure, unspecified
CPT/HCPCS: 36415; 80048; 85027

== ENCOUNTER 2018-11-05 10:02 | Day surgery (SDC) | payer MEDICARE ==
[2018-11-03 10:38] VITALS: BMI 31.0
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
[~2018-11-05 10:02] MED LIST: LACTATED RINGERS 1,000 ML IV SCH
[2018-11-05 10:32] VITALS: TEMP 98.4
[2018-11-05] MEDS ORDERED: LACTATED RINGERS 1,000 ML IV ONE (10:42)
[2018-11-05] MEDS ORDERED: LIDOCAINE 1% 20 ML VIAL (10MG/ML) FOR IV START INTRADERMA ONE (10:43)
[2018-11-05] MEDS ORDERED: PROPOFOL 10 MG/ML 20 ML VIAL IV ONE (11:01)
--- NOTE | 2018-11-05 11:17 | P.PCN ---
Date of Procedure: 11/05/18 Procedure(s) Performed: PREOPERATIVE DIAGNOSIS: Colon cancer screening, history of polyps POSTOPERATIVE DIAGNOSIS: Ascending colon polyp, diverticulosis PROCEDURE: Colonoscopy with snare polypectomy ANESTHESIA: MAC SURGEON: Edi South M.D. SPECIMENS: Ascending colon polyp ENDOSCOPIC PROCEDURE: The patient was placed on the endoscopy table in the left decubitus position. The Olympus colonoscope was inserted into the anus and passed under direct visualization to the base of the cecum. The appendiceal orifice was visualized. From that point the scope was slowly withdrawn inspecting all surfaces carefully. There were no neoplastic inflammatory or polypoid lesions throughout the cecum, ascending, transverse, descending, sigmoid and rectum. There was mild left-sided diverticulosis noted. Digital rectal examination was normal. The patient was taken to the recovery room in stable condition per anesthesia guidelines. RECOMMENDATIONS: Await biopsy results. Follow-up colonoscopy 5 years.
[2018-11-05 11:41] VITALS: RESP 18
[2018-11-05 11:57] VITALS: BP 114/80; PULSE 64
== END 2018-11-05 12:11 | disposition home or self-care (01) ==
LOC: ORWHC2ENDO 10:02
PROVIDERS: ATTEND Surgery
DX: Z12.11 Encounter for screening for malignant neoplasm of colon (principal); Z86.010 Personal history of colon polyps; D12.2 Benign neoplasm of ascending colon; K57.30 Diverticulosis of large intestine without perforation or abscess without bleeding; Z80.0 Family history of malignant neoplasm of digestive organs; I11.0 Hypertensive heart disease with heart failure; I50.20 Unspecified systolic (congestive) heart failure; I25.2 Old myocardial infarction; Z95.5 Presence of coronary angioplasty implant and graft; E78.5 Hyperlipidemia, unspecified; K21.9 Gastro-esophageal reflux disease without esophagitis; M19.042 Primary osteoarthritis, left hand; M19.041 Primary osteoarthritis, right hand; M19.072 Primary osteoarthritis, left ankle and foot; M19.071 Primary osteoarthritis, right ankle and foot; Z97.2 Presence of dental prosthetic device (complete) (partial); Z79.82 Long term (current) use of aspirin; Z79.02 Long term (current) use of antithrombotics/antiplatelets; Z79.899 Other long term (current) drug therapy; Z91.048 Other nonmedicinal substance allergy status; Z88.5 Allergy status to narcotic agent
CPT/HCPCS: 45385; 88305; J2704

== ENCOUNTER 2021-04-13 09:54 | Emergency (ER) | payer MEDICARE ==
[2021-04-13 10:01] VITALS: BP 121/65; PULSE 70; RESP 18; TEMP 99.1
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
== END 2021-04-13 12:32 | disposition home or self-care (01) ==
LOC: EC 09:54
DX: J06.9 Acute upper respiratory infection, unspecified (principal); K21.9 Gastro-esophageal reflux disease without esophagitis; E78.5 Hyperlipidemia, unspecified; I10 Essential (primary) hypertension; I25.2 Old myocardial infarction; M19.90 Unspecified osteoarthritis, unspecified site; Z20.822 Contact with and (suspected) exposure to COVID-19; Z79.02 Long term (current) use of antithrombotics/antiplatelets; Z79.82 Long term (current) use of aspirin
CPT/HCPCS: 87502; 87635; 99283

== ENCOUNTER 2023-12-15 09:30 | Day surgery (SDC) | payer MEDICARE ==
[2023-12-15] MEDS ORDERED: LACTATED RINGERS 1,000 ML BAG ONE (11:01)
[2023-12-15] MEDS ORDERED: PROPOFOL 10 MG/ML 20 ML VIAL IV ONE (11:36)
--- NOTE | 2023-12-18 15:56 | OP ---
OPERATIVE REPORT DATE OF SERVICE : PREOPERATIVE DIAGNOSIS: Screening with family history of colon cancer in parents and siblings. POSTOPERATIVE DIAGNOSES: Ascending colon polyp x2, diverticulosis. PROCEDURES: Colonoscopy with snare polypectomy. ANESTHESIA: Sedation. SURGICAL COMPLICATIONS: None. OPERATIVE PROCEDURE: The patient was brought and placed on OR table in left decubitus position. The patient was sedated per anesthesia at that time. The Olympus colonoscope was inserted via anus and passed under direct vision at the base of the cecum. From that point, we slowly withdrew the scope, inspected all organs carefully. In the ascending colon, there was noted to be 2 small polyps, both removed using a snare with cautery technique. The remainder of the ascending, transverse, descending, sigmoid, rectum appeared normal. There was mild left-sided diverticulosis. Digital rectal exam was normal. PLAN: 1. Resume diet. 2. Follow up colonoscopy in 5 years. MMODL / IJN: [id number] /
== END 2023-12-15 12:31 ==
LOC: ORWHC2ENDO 09:30
PROVIDERS: ATTEND Surgery
DX: Z12.11 Encounter for screening for malignant neoplasm of colon (principal); D12.2 Benign neoplasm of ascending colon; K57.30 Diverticulosis of large intestine without perforation or abscess without bleeding; I25.2 Old myocardial infarction; I10 Essential (primary) hypertension; E78.5 Hyperlipidemia, unspecified; Z95.5 Presence of coronary angioplasty implant and graft; Z80.0 Family history of malignant neoplasm of digestive organs; Z88.8 Allergy status to other drugs, medicaments and biological substances; Z79.02 Long term (current) use of antithrombotics/antiplatelets
CPT/HCPCS: 45385